=== PATIENT | male | born 1945 | race Two or more races ===

== ENCOUNTER 2018-07-24 16:04 | Observation (INO) | payer OTHER, BC ==
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
[2018-07-24 16:45] LABS: BASO % 0.6 % (0-2.0); EOS % 3.4 % (0-4.5); HEMATOCRIT 45.5 % (35.4-49); HEMOGLOBIN 15.2 GM/dL (11.7-16.9); LYMPH % 20.5 % (8-40); MCH 30.2 pg (25.7-33.7); MCHC 33.3 g/dl (32.0-35.9); MEAN CELL VOLUME 90.5 fl (80-96); MEAN PLT VOLUME 9.3 fl (7.5-11.1); MONO % 10.9 % (3.8-10.2); NEUT % 64.6 % (42.8-82.8); PLATELET COUNT 184 K/MM3 (134-434); RBC 5.03 M/mm3 (4.00-5.60); RDW 14.4 % (11.9-15.9); WHITE BLOOD COUNT 4.2 K/mm3 (4.0-10.0)
[2018-07-24 17:17] LABS: INR 1.18 (0.83-1.09); PROTHROMBIN TIME (PATIENT) 13.3 SEC (9.7-13.0)
[2018-07-24 17:20] LABS: ALBUMIN 3.8 g/dl (3.4-5.0); ANION GAP 10 MMOL/L (8-16); BLOOD UREA NITROGEN 25 mg/dL (7-18); CALCIUM 9.2 mg/dL (8.5-10.1); CHLORIDE 111 mmol/L (98-107); CO2 25 mmol/L (21-32); GLUCOSE,RANDOM 87 mg/dL (74-106); POTASSIUM 3.5 mmol/L (3.5-5.1); SGOT/AST 37 U/L (15-37); SGPT/ALT 24 U/L (12-78); SODIUM 146 mmol/L (136-145); TOT PROT 7.6 g/dl (6.4-8.2)
[2018-07-24 17:21] LABS: ALK PHOS 75 U/L (45-117)
[2018-07-24 17:26] LABS: URINE APPEARANCE SLCLOUDY; URINE BILIRUBIN NEGATIVE (<2.0 mg/dL); URINE COLOR DKYELLOW; URINE GLUCOSE (UA) NEGATIVE (NEGATIVE); URINE KETONE NEGATIVE (NEGATIVE); URINE LEUK ESTERASE NEGATIVE (NEGATIVE); URINE NITRITE NEGATIVE (NEGATIVE)
[2018-07-24 17:29] LABS: URINE PROTEIN 1+ (NEGATIVE)
[2018-07-24] MEDS: SODIUM CHLORIDE 1,000 ML IV SCH (17:30)
[2018-07-24 17:31] LABS: EPI CELLS RARE /HPF (FEW); URINE HYALINE CAST 5 /lpf; URINE MUCUS RARE
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
[2018-07-24] MEDS ORDERED: GABAPENTIN 400 MG CAPSULE (FP) PO SCH (22:30)
[2018-07-24] MEDS ORDERED: GABAPENTIN 100 MG CAPSULE (FP) PO SCH (22:30)
[2018-07-24] MEDS ORDERED: DONEPEZIL HCL 5 MG TABLET (FP) ONE (22:48)
[2018-07-24] MEDS ORDERED: GABAPENTIN 100 MG CAPSULE (FP) ONE (22:48)
[2018-07-24] MEDS ORDERED: ATORVASTATIN CA 10 MG TABLET (FP) ONE (22:48)
[2018-07-24] MEDS: DONEPEZIL HCL 5 MG TABLET (FP) PO SCH (22:57)
[2018-07-24] MEDS: GABAPENTIN 100 MG CAPSULE (FP) PO SCH (22:58)
[2018-07-24] MEDS: ATORVASTATIN CA 10 MG TABLET (FP) PO SCH (23:01)
[2018-07-24] MEDS: LOSARTAN POTASSIUM 50 MG TABLET (FP) PO SCH (23:37)
[2018-07-24] MEDS: MEMANTINE HCL 10 MG TABLET (FP) PO SCH (23:37)
[2018-07-25 00:03] VITALS: BMI 29.0
[2018-07-25] MEDS: LATANOPROST 0.005% OPHTH SOLN 2.5ML BOTTLE OU SCH ×2 (00:39→22:31)
[2018-07-25] MEDS: SODIUM CHLORIDE 1,000 ML IV SCH ×2 (00:56→09:31)
[2018-07-25] MEDS: GEMFIBROZIL 600 MG TABLET (FP) PO SCH ×2 (06:42→16:38)
[2018-07-25 07:09] LABS: BASO % 0.7 % (0-2.0); EOS % 6.7 % (0-4.5); HEMATOCRIT 39.7 % (35.4-49); HEMOGLOBIN 13.1 GM/dL (11.7-16.9); LYMPH % 25.8 % (8-40); MCH 29.7 pg (25.7-33.7); MONO % 12.4 % (3.8-10.2); NEUT % 54.4 % (42.8-82.8); PLATELET COUNT 138 K/MM3 (134-434); RBC 4.41 M/mm3 (4.00-5.60); RDW 13.9 % (11.9-15.9); WHITE BLOOD COUNT 3.8 K/mm3 (4.0-10.0)
[2018-07-25 07:47] LABS: ANION GAP 8 MMOL/L (8-16); BLOOD UREA NITROGEN 23 mg/dL (7-18); CALCIUM 7.9 mg/dL (8.5-10.1); CHLORIDE 112 mmol/L (98-107); CO2 25 mmol/L (21-32); MAGNESIUM 1.9 mg/dL (1.8-2.4); POTASSIUM 3.3 mmol/L (3.5-5.1); SODIUM 145 mmol/L (136-145)
[2018-07-25 07:50] LABS: CREATININE 0.8 mg/dL (0.7-1.3); GLUCOSE,RANDOM 82 mg/dL (74-106); PHOSPHOROUS 3.2 mg/dL (2.5-4.9)
[2018-07-25] MEDS: BETAXOLOL HCL 0.25% OPHTHALMIC 10 ML DROPSBTL OU SCH (09:31)
[2018-07-25] MEDS: LOSARTAN POTASSIUM 50 MG TABLET (FP) PO SCH (09:31)
[2018-07-25] MEDS: OXYBUTYNIN CHLORIDE 5 MG TABLET PO SCH (09:31)
[2018-07-25] MEDS: MEMANTINE HCL 10 MG TABLET (FP) PO SCH ×2 (09:31→22:31)
[2018-07-25] MEDS: ALLOPURINOL 100 MG TABLET (FP) PO SCH (09:32)
[2018-07-25] MEDS: GABAPENTIN 100 MG CAPSULE (FP) PO SCH ×2 (09:32→22:31)
--- NOTE | 2018-07-25 09:47 | EKG ---
Test Reason : Blood Pressure : / mmHG Vent. Rate : 077 BPM Atrial Rate : 077 BPM P-R Int : 156 ms QRS Dur : 104 ms QT Int : 404 ms P-R-T Axes : 066 -17 071 degrees QTc Int : 457 ms NORMAL SINUS RHYTHM BIATRIAL ENLARGEMENT LEFT VENTRICULAR HYPERTROPHY NONSPECIFIC ST ABNORMALITY ABNORMAL ECG WHEN COMPARED WITH ECG OF 28-JAN-2006 15:02, T WAVE INVERSION NO LONGER EVIDENT IN INFERIOR LEADS Confirmed by Edison Cui MD ([id number]) on 07/25/2018 9:47:07 AM Referred By: Confirmed By:Edison Cui MD
--- NOTE | 2018-07-25 11:54 | PN ---
Progress Note, Physician Chief Complaint: Mr Craft says he feels a little weak and nervous today but otherwise is doing well. Denies cp, sob, n/v. - Current Medication List Current Medications: Active Medications Allopurinol (Zyloprim -) 100 mg PO DAILY [facility] Last Admin: 07/25/18 09:32 Dose: 100 mg Atorvastatin Calcium (Lipitor -) 10 mg PO HS [facility] Last Admin: 07/24/18 23:01 Dose: 10 mg Betaxolol HCl (Betoptic S 0.25% -) 1 drop OU DAILY [facility] Last Admin: 07/25/18 09:31 Dose: 1 drop Donepezil HCl (Aricept -) 5 mg PO HS [facility] Last Admin: 07/24/18 22:57 Dose: 5 mg Gabapentin (Neurontin -) 200 mg PO BID [facility] Last Admin: 07/25/18 09:32 Dose: 200 mg Gemfibrozil (Lopid -) 600 mg PO BID@0700,1630 [facility] Last Admin: 07/25/18 06:42 Dose: 600 mg Latanoprost (Xalatan 0.005% Eye Drops -) 1 drop OU [facility] Last Admin: 07/25/18 00:39 Dose: 1 drop Losartan Potassium (Cozaar -) 100 mg PO DAILY [facility] Last Admin: 07/25/18 09:31 Dose: 100 mg Memantine (Namenda -) 10 mg PO BID [facility] Last Admin: 07/25/18 09:31 Dose: 10 mg Oxybutynin Chloride (Ditropan -) 5 mg PO DAILY [facility] Last Admin: 07/25/18 09:31 Dose: 5 mg Potassium Chloride (K-Dur -) 40 meq PO ONCE ONE Stop: 07/25/18 11:32 Rivaroxaban (Xarelto -) 20 mg PO 1800 [facility] - Objective Vital Signs: Vital Signs Temperature 36.6 C 07/25/18 09:40 Pulse Rate 57 L 07/25/18 09:40 Respiratory Rate 20 07/25/18 09:40 Blood Pressure 178/92 07/25/18 09:40 O2 Sat by Pulse Oximetry (%) 99 07/25/18 06:17 Constitutional: Yes: Well Nourished, No Distress, Calm Cardiovascular: Yes: Regular Rate and Rhythm. No: Gallop, Murmur, Rub Respiratory: Yes: Regular, CTA Bilaterally. No: Rales, Rhonchi, Wheezes Gastrointestinal: Yes: Normal Bowel Sounds, Soft. No: Distention, Tenderness Extremities: Yes: WNL Edema: No Labs: CBC, BMP 07/25/18 06:00 07/25/18 06:00 INR, PTT INR 1.18 (0.83-1.09) H 07/24/18 16:31 Problem List - Problems (1) Alzheimer's dementia with behavioral disturbance Assessment/Plan: -appears stable -patient calm on exam -continue home regimen -await psychiatry evaluation and recommendations Code(s): G30.9 - ALZHEIMER'S DISEASE, UNSPECIFIED; F02.81 - DEMENTIA IN OTH DISEASES CLASSD ELSWHR W BEHAVIORAL DISTURB Qualifiers: Alzheimer's disease onset: other onset Qualified Code(s): G30.8 - Other Alzheimer's disease; F02.81 - Dementia in other diseases classified elsewhere with behavioral disturbance (2) Hypokalemia Assessment/Plan: -replace with oral potassium Code(s): E87.6 - HYPOKALEMIA (3) Dehydration Assessment/Plan: -resolved -stop IVF Code(s): E86.0 - DEHYDRATION (4) Hypertension Assessment/Plan: -continue cozaar Code(s): I10 - ESSENTIAL (PRIMARY) HYPERTENSION Qualifiers: Hypertension type: essential hypertension Qualified Code(s): I10 - Essential (primary) hypertension (5) Atrial fibrillation Assessment/Plan: -in sinus rhythm -continue xarelto Code(s): I48.91 - UNSPECIFIED ATRIAL FIBRILLATION Qualifiers: Atrial fibrillation type: paroxysmal Qualified Code(s): I48.0 - Paroxysmal atrial fibrillation (6) Weakness Assessment/Plan: -PT consult Code(s): R53.1 - WEAKNESS Assessment/Plan Dispo -await psychiatry and PT evaluation for disposition planning
[2018-07-25] MEDS ORDERED: POTASSIUM CHLORIDE TABS 20 MEQ TABLET.ER (FP) PO ONE (12:30)
[2018-07-25] MEDS ORDERED: PT OWN MED DRAWER 7, Y5N ONE ×2 (17:01→22:22)
[2018-07-25] MEDS ORDERED: RIVAROXABAN 20 MG TABLET PO SCH (18:00)
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
[2018-07-25] MEDS: ATORVASTATIN CA 10 MG TABLET (FP) PO SCH (22:31)
[2018-07-25] MEDS: DONEPEZIL HCL 5 MG TABLET (FP) PO SCH (22:32)
[2018-07-26] MEDS: GEMFIBROZIL 600 MG TABLET (FP) PO SCH (06:41)
[2018-07-26 07:48] LABS: BASO % 0.8 % (0-2.0); HEMATOCRIT 42.5 % (35.4-49); HEMOGLOBIN 13.8 GM/dL (11.7-16.9); LYMPH % 29.2 % (8-40); MCH 29.3 pg (25.7-33.7); MCHC 32.4 g/dl (32.0-35.9); MEAN CELL VOLUME 90.5 fl (80-96); MONO % 12.5 % (3.8-10.2); NEUT % 52.5 % (42.8-82.8); PLATELET COUNT 152 K/MM3 (134-434); RDW 13.7 % (11.9-15.9); WHITE BLOOD COUNT 4.5 K/mm3 (4.0-10.0)
[2018-07-26 08:39] LABS: CHLORIDE 109 mmol/L (98-107); SODIUM 142 mmol/L (136-145)
[2018-07-26 08:41] LABS: ANION GAP 7 MMOL/L (8-16); BLOOD UREA NITROGEN 20 mg/dL (7-18); CALCIUM 8.2 mg/dL (8.5-10.1); CO2 26 mmol/L (21-32); CREATININE 0.8 mg/dL (0.7-1.3); GLUCOSE,RANDOM 76 mg/dL (74-106); MAGNESIUM 1.8 mg/dL (1.8-2.4); PHOSPHOROUS 3.2 mg/dL (2.5-4.9)
[2018-07-26 08:47] VITALS: BP 119/95
[2018-07-26] MEDS ORDERED: PT OWN MED DRAWER 7, Y5N ONE (09:10)
[2018-07-26] MEDS: GABAPENTIN 100 MG CAPSULE (FP) PO SCH (09:12)
[2018-07-26] MEDS: MEMANTINE HCL 10 MG TABLET (FP) PO SCH (09:12)
[2018-07-26] MEDS: ALLOPURINOL 100 MG TABLET (FP) PO SCH (09:12)
[2018-07-26] MEDS: BETAXOLOL HCL 0.25% OPHTHALMIC 10 ML DROPSBTL OU SCH (09:12)
[2018-07-26] MEDS: LOSARTAN POTASSIUM 50 MG TABLET (FP) PO SCH (09:12)
[2018-07-26] MEDS: OXYBUTYNIN CHLORIDE 5 MG TABLET PO SCH (09:12)
[2018-07-26] MEDS ORDERED: ESCITALOPRAM OXALATE 10 MG TABLET (FP) PO SCH (10:00)
[2018-07-26 14:51] VITALS: PULSE 61; TEMP 98.1
--- NOTE | 2018-07-26 15:06 | PN ---
Progress Note, Physician Chief Complaint: Mr Craft is without complaint aside from feeling nervous. No cp, sob, n/v. - Current Medication List Current Medications: Active Medications Allopurinol (Zyloprim -) 100 mg PO DAILY [facility] Last Admin: 07/26/18 09:12 Dose: 100 mg Atorvastatin Calcium (Lipitor -) 10 mg PO HS [facility] Last Admin: 07/25/18 22:31 Dose: 10 mg Betaxolol HCl (Betoptic S 0.25% -) 1 drop OU DAILY [facility] Last Admin: 07/26/18 09:12 Dose: 1 drop Donepezil HCl (Aricept -) 5 mg PO HS [facility] Last Admin: 07/25/18 22:32 Dose: 5 mg Escitalopram Oxalate (Lexapro -) 10 mg PO DAILY [facility] Last Admin: 07/26/18 09:12 Dose: 10 mg Gabapentin (Neurontin -) 200 mg PO BID [facility] Last Admin: 07/26/18 09:12 Dose: 200 mg Gemfibrozil (Lopid -) 600 mg PO BID@0700,1630 [facility] Last Admin: 07/26/18 06:41 Dose: 600 mg Latanoprost (Xalatan 0.005% Eye Drops -) 1 drop OU HS [facility] Last Admin: 07/25/18 22:31 Dose: 1 drop Losartan Potassium (Cozaar -) 100 mg PO DAILY [facility] Last Admin: 07/26/18 09:12 Dose: 100 mg Memantine (Namenda -) 10 mg PO BID [facility] Last Admin: 07/26/18 09:12 Dose: 10 mg Oxybutynin Chloride (Ditropan -) 5 mg PO DAILY [facility] Last Admin: 07/26/18 09:12 Dose: 5 mg Rivaroxaban (Xarelto -) 20 mg PO 1800 [facility] Last Admin: 07/25/18 17:02 Dose: 20 mg - Objective Vital Signs: Vital Signs Temperature 36.7 C 07/26/18 14:50 Pulse Rate 61 07/26/18 14:50 Respiratory Rate 20 07/26/18 08:46 Blood Pressure 119/95 07/26/18 08:46 O2 Sat by Pulse Oximetry (%) 98 07/26/18 06:00 Constitutional: Yes: Well Nourished, No Distress, Calm Cardiovascular: Yes: Regular Rate and Rhythm. No: Gallop, Murmur, Rub Respiratory: Yes: Regular, CTA Bilaterally. No: Rales, Rhonchi, Wheezes Gastrointestinal: Yes: Normal Bowel Sounds, Soft. No: Distention, Tenderness Extremities: Yes: WNL Edema: No Labs: CBC, BMP 07/26/18 06:30 07/26/18 06:30 INR, PTT INR 1.18 (0.83-1.09) H 07/24/18 16:31 Problem List - Problems (1) Alzheimer's dementia with behavioral disturbance Code(s): G30.9 - ALZHEIMER'S DISEASE, UNSPECIFIED; F02.81 - DEMENTIA IN OTH DISEASES CLASSD ELSWHR W BEHAVIORAL DISTURB Qualifiers: Alzheimer's disease onset: other onset Qualified Code(s): G30.8 - Other Alzheimer's disease; F02.81 - Dementia in other diseases classified elsewhere with behavioral disturbance (2) Hypokalemia Code(s): E87.6 - HYPOKALEMIA (3) Dehydration Code(s): E86.0 - DEHYDRATION (4) Hypertension Code(s): I10 - ESSENTIAL (PRIMARY) HYPERTENSION Qualifiers: Hypertension type: essential hypertension Qualified Code(s): I10 - Essential (primary) hypertension (5) Atrial fibrillation Code(s): I48.91 - UNSPECIFIED ATRIAL FIBRILLATION Qualifiers: Atrial fibrillation type: paroxysmal Qualified Code(s): I48.0 - Paroxysmal atrial fibrillation (6) Weakness Code(s): R53.1 - WEAKNESS
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
== END 2018-07-26 17:37 | disposition home or self-care (01) ==
LOC: JER 16:04 → J6S 21:51
PROVIDERS: ADMIT Internal Medicine; ATTEND Internal Medicine
PROC: 3E0337Z Introduction of Electrolytic and Water Balance Substance into Peripheral Vein, Percutaneous Approach (ICD-10-PCS; principal; 2018-07-24)
DX: E86.0 Dehydration (principal); G30.8 Other Alzheimer's disease; F02.81 Dementia in other diseases classified elsewhere, unspecified severity, with behavioral disturbance; S59.919A Unspecified injury of unspecified forearm, initial encounter; I10 Essential (primary) hypertension; I25.10 Atherosclerotic heart disease of native coronary artery without angina pectoris; I48.0 Paroxysmal atrial fibrillation; E86.1 Hypovolemia; E78.5 Hyperlipidemia, unspecified; E87.6 Hypokalemia; H40.9 Unspecified glaucoma; M10.9 Gout, unspecified; F41.9 Anxiety disorder, unspecified; R53.1 Weakness; Z79.01 Long term (current) use of anticoagulants; Z98.61 Coronary angioplasty status; X99.1XXA Assault by knife, initial encounter; Y93.9 Activity, unspecified; Y92.9 Unspecified place or not applicable; Z59.0 Homelessness
CPT/HCPCS: 36415; 70450-TC; 71046-TC-FY; 73090-TC-LT-FY; 80048; 80053; 81003; 81015; 83735; 84100; 84484; 85025; 85610; 93005; 93010; 97116-GP; 97161-GP; 99284-25; G0378; J7030

== ENCOUNTER 2024-02-29 07:08 | Day surgery (SDC) | payer OTHER, BC ==
[2024-02-24 09:18] VITALS: BMI 28.8
[2024-02-29] MEDS ORDERED: CARBACHOL 0.01% INTRA-OCULAR 1.5 ML VIAL ONE (07:18)
[2024-02-29] MEDS ORDERED: TETRACAINE 0.5% OPHTH SOLN 2 ML BOTTLE ONE (07:18)
[2024-02-29] MEDS ORDERED: BSS (NA/CA/MG/K) BALANCED SALT SOLUTION OPHTH SOLN 15 ML BOTTLE ONE (07:18)
[2024-02-29] MEDS ORDERED: LIDOCAINE 1% P/F 10 MG/ML VIAL ONE (07:18)
[2024-02-29] MEDS ORDERED: NEO/POLYMYX B SULF/DEXAMETH OPHTHALMIC 5ML BOTTLE ONE (07:18)
[2024-02-29] MEDS: CYCLOPENTOLATE 2% OPHTH SOLN 2 ML BOTTLE ONE (07:30)
[2024-02-29] MEDS: PHENYLEPHRINE 2.5% OPTHALMIC DROP 2ML BOTTLE ONE (07:30)
[2024-02-29] MEDS: CIPROFLOXACIN 0.3% EYE DROPS 5 ML BOTTLE ONE (07:30)
[2024-02-29] MEDS: TROPICAMIDE 1% OPHTH SOLN 15 ML BOTTLE ONE (07:30)
[2024-02-29 07:42] VITALS: RESP 16
[2024-02-29] MEDS ORDERED: MIDAZOLAM HCL 2 MG/2 ML SINGLE DOSE VIAL ONE (08:22)
[2024-02-29 09:31] VITALS: BP 131/85; PULSE 47; TEMP 97
== END 2024-02-29 10:00 | disposition home or self-care (01) ==
LOC: FASU 07:08
PROVIDERS: ATTEND Ophthalmology
PROC: 08RJ3JZ Replacement of Right Lens with Synthetic Substitute, Percutaneous Approach (ICD-10-PCS; principal; 2024-02-29 09:12)
DX: H26.8 Other specified cataract (principal)
CPT/HCPCS: 66984; V2632

== ENCOUNTER 2024-05-02 08:13 | Day surgery (SDC) | payer OTHER, BC ==
[2024-04-25 15:04] VITALS: BMI 28.8
[2024-05-02] MEDS ORDERED: MIDAZOLAM HCL 2 MG/2 ML SINGLE DOSE VIAL ONE (08:19)
[2024-05-02] MEDS ORDERED: TROPICAMIDE 1% OPHTH SOLN 15 ML BOTTLE ONE (08:19)
[2024-05-02] MEDS ORDERED: CYCLOPENTOLATE 2% OPHTH SOLN 2 ML BOTTLE ONE (08:19)
[2024-05-02] MEDS ORDERED: CIPROFLOXACIN 0.3% EYE DROPS 5 ML BOTTLE ONE (08:19)
[2024-05-02] MEDS ORDERED: PHENYLEPHRINE 2.5% OPTHALMIC DROP 2ML BOTTLE ONE (08:19)
[2024-05-02] MEDS ORDERED: EPINEPHrine/PF 1 MG/1 ML (1:1,000) AMPULE ONE (08:42)
[2024-05-02] MEDS ORDERED: CARBACHOL 0.01% INTRA-OCULAR 1.5 ML VIAL ONE (08:43)
[2024-05-02] MEDS ORDERED: TETRACAINE 0.5% OPHTH SOLN 2 ML BOTTLE ONE (08:43)
[2024-05-02] MEDS ORDERED: LIDOCAINE 1% P/F 10 MG/ML VIAL ONE (08:43)
[2024-05-02] MEDS ORDERED: NEO/POLYMYX B SULF/DEXAMETH OPHTHALMIC 5ML BOTTLE ONE (08:43)
[2024-05-02] MEDS ORDERED: BSS (NA/CA/MG/K) BALANCED SALT SOLUTION OPHTH SOLN 15 ML BOTTLE ONE (08:43)
[2024-05-02] MEDS: CIPROFLOXACIN 0.3% EYE DROPS 5 ML BOTTLE OS ONE ×3 (08:45→08:55)
[2024-05-02] MEDS: CYCLOPENTOLATE 2% OPHTH SOLN 2 ML BOTTLE OS ONE ×3 (08:45→08:55)
[2024-05-02] MEDS: PHENYLEPHRINE 2.5% OPHTH SOLN 15 ML BOTTLE OS ONE ×3 (08:45→08:55)
[2024-05-02] MEDS: TROPICAMIDE 1% OPHTH SOLN 15 ML BOTTLE OS ONE ×3 (08:45→08:55)
[2024-05-02 11:44] VITALS: TEMP 97
[2024-05-02 11:45] VITALS: PULSE 57
[2024-05-02 11:51] VITALS: BP 132/79; RESP 18
== END 2024-05-02 11:00 | disposition home or self-care (01) ==
LOC: FASU 08:13
PROVIDERS: ATTEND Ophthalmology
PROC: 08RK3JZ Replacement of Left Lens with Synthetic Substitute, Percutaneous Approach (ICD-10-PCS; principal; 2024-05-02 10:05)
DX: H26.8 Other specified cataract (principal)
CPT/HCPCS: 66984; V2632